=== PATIENT | male | born 1965 | race Caucasian/White ===

== ENCOUNTER 2016-06-01 22:49 | Emergency (ER) | payer OTHER ==
[~2016-06-01 22:49] MED LIST: FLEXERIL10 MG PO; TRAMADOL50 MG PO
[2016-06-01 22:57] VITALS: BP 121/85
[2016-06-01] MEDS ORDERED: OXYCODONE-ACET1 EACH PO (23:23)
[2016-06-01] MEDS ORDERED: MOBIC15 M1 PO (23:24)
--- NOTE | 2016-06-01 23:24 | ED HAND/WRIST INJURY COMPLAINT ---
History of Present Illness General Chief Complaint: General Adult Stated Complaint: PT IS HAVING PAIN IN THE WRIST RG HAND Source: patient Exam Limitations: no limitations Vital Signs & Intake/Output Vital Signs & Intake/Output Vital Signs Date Time Temp Pulse Resp B/P Pulse O2 O2 Flow FiO2 Ox Delivery Rate 06/01 2257 97.0 67 20 121/85 99 Allergies Coded Allergies: NO KNOWN ALLERGIES (03/15/14) Reconcile Medications Meloxicam (Mobic) 15 MG TABLET 1 TAB PO DAILY pain Oxycodone HCl/Acetaminophen (Oxycodone-Acetaminophen 5-325) 5 MG-325 MG TABLET 1 TAB PO BIDP PRN PAIN (Reported) Triage Note: PER PT PAIN TO FINGER AND RT WRIST, UNABLE TO HOLD FORK. HAPPENED A YEAR AGO TOO. Triage Nurses Notes Reviewed? yes Duration: day(s):, constant Timing: recent history Injury Environment: home Severity: moderate, severe Pain/Injury Location: Right: Hand. Method of Injury: unknown No Modifying Factors: none HPI: 50-year-old male comes into the emergency room with complaints of severe pain to his right finger that shoots up his hand. Pain is worse with any type of range of motion. Denies any trauma that he is aware of. Pain has been keeping him up at night. Denies any chest pain shortness of breath shoulder pain. Pain is all localized to the right hand. Patient requesting something for pain. As stated before patient denies any trauma at all to the hand. Denies any other associated symptoms. (MAIKEL ODONNELL) Past History Travel History Traveled to [place] past 21 day No Medical History Any Pertinent Medical History? see below for history Neurological: NONE EENT: NONE Cardiovascular: NONE Respiratory: NONE Gastrointestinal: NONE Hepatic: NONE Renal: NONE Musculoskeletal: NONE Psychiatric: NONE Endocrine: NONE Surgical History Surgical History: non-contributory Psychosocial History What is your primary language Kinyarwanda Tobacco Use: Never used Family History Hx Contributory? No (MAIKEL ODONNELL) Review of Systems Review of Systems Constitutional: Reports: no symptoms. EENTM: Reports: no symptoms. Respiratory: Reports: no symptoms. Cardiovascular: Reports: no symptoms. GI: Reports: no symptoms. Genitourinary: Reports: no symptoms. Musculoskeletal: Reports: see HPI. Skin: Reports: no symptoms. Neurological/Psychological: Reports: no symptoms. Hematologic/Endocrine: Reports: no symptoms. Immunologic/Allergic: Reports: no symptoms. All Other Systems: Reviewed and Negative (MAIKEL ODONNELL) Physical Exam Physical Exam General Appearance: well developed/nourished, mild distress Head: atraumatic Eyes: Bilateral: normal appearance. Ears, Nose, Throat: normal ENT inspection, hearing grossly normal Neck: normal inspection Cardiovascular/Respiratory: no respiratory distress Back: normal inspection Hand Left: normal inspection Hand Right: limited range of motion, 2nd finger, PAIN WITH EXTENSION OF FINGER Neurologic/Tendon: normal sensation, normal motor functions, normal tendon functions, responds to pain, no evidence tendon injury, no pulse deficit Skin: intact, normal color, warm/dry Lymphatic: no anterior cervical evelyn (MAIKEL ODONNELL) Progress Differential Diagnosis: abscess, cellulitis, contusion, compartment syndrome, fracture, gout, paronychia, septic arthritis, sprain, tenosynovitis, TENDINITIS Plan of Care: Current Medications Sig/Vivi Start time Last Medication Dose Stop Time Status Admin Oxycodone HCl 10 MG ONCE ONE 06/01 2329 UNVr (Roxicodone) 06/01 2330 Departure Departure Disposition: HOME OR SELF CARE Condition: Stable Clinical Impression Primary Impression: Tendinitis of right hand Referrals: PATIENT HAS NO PRIMARY CARE DR (PCP/Family) CHRIS MCCURDY MD Additional Instructions: Take Mobic as prescribed. Follow-up with orthopedic doctor. Return if any other concerns worsening symptoms. Ice. Rest. Use wrist splint. Please go over all results of today's visit with your primary care doctor. Contact your primary care doctor to let them know you were here in the emergency room. There may be nonspecific findings which may not be related to your visit today here in the emergency room but may require further evaluation and chronic monitoring by your primary care doctor. If you had a laceration today the chance of foreign body always remains. You should follow-up with your primary care doctor for recheck in 3-5 days for a wound check. If you had an x-ray done there is a chance that a fracture could have been missed on initial read and you should follow-up with your primary care doctor for repeat x-rays if symptoms persist. If your blood pressure was elevated here in the emergency room please have rechecked by her primary care doctor within the next 48 hours by your primary care doctor. If you were prescribed a narcotic here in the emergency room or any type of controlled substances you're not allowed to drive while taking this medication or operate any type of heavy machinery. Narcotics can make you feel lightheaded dizziness nausea and can cause constipation. You may need to tile picker a stool softener. Thank you for choosing [facility] emergency room. Please return to the emergency room immediately if you have any other concerns worsening of symptoms. Departure Forms: Customer Survey General Discharge Information Prescriptions: Current Visit Scripts Meloxicam (Mobic) 1 TAB PO DAILY #20 TAB (MAIKEL ODONNELL) PA/RETAIL PROJECT MERCHANDISER Co-Sign Statement Statement: ED Attending supervision documentation- [] I saw and evaluated the patient. I have also reviewed all the pertinent lab results and diagnostic results. I agree with the findings and the plan of care as documented in the PA's/RETAIL PROJECT MERCHANDISER's documentation. [X] I have reviewed the ED Record and agree with the PA's/RETAIL PROJECT MERCHANDISER's documentation. [] Additions or exceptions (if any) to the PAs/RETAIL PROJECT MERCHANDISER's note and plan are summarized below: [] (NICHO PROCTOR,ANABELLE Hathaway) Procedures Splinting Location: RIGHT HAND Manual Alignment Performed: Yes Pre-Made Type: velcro Splint: wrist (/HAND) Splint Applied By: splint applied by me Pre-Proc Neuro Vasc Exam: normal Post-Proc Neuro Vasc Exam: normal (MAIKEL ODONNELL)
[2016-10-30] MEDS ORDERED: ULTRAM50 M1 PO (23:44)
[2016-10-30] MEDS ORDERED: CYCLOBENZAPRINE10 M1 PO (23:44)
[2016-10-30] MEDS ORDERED: NAPROSYN500 M1 PO (23:44)
== END 2016-06-02 00:01 ==
LOC: ERH 22:49
DX: M77.9 Enthesopathy, unspecified (principal)

== ENCOUNTER 2016-09-20 17:42 | Emergency (ER) | payer OTHER ==
[~2016-09-20] VITALS: Ht 172.7 cm; Wt 76.2 kg
[~2016-09-20 17:42] MED LIST changes: +MOBIC15 M1 PO; +OXYCODONE-ACET1 EACH PO
[2016-09-20 17:46] VITALS: BP 127/86
--- NOTE | 2016-09-20 18:02 | ED CARDIAC/CP/PALPITATIONS ---
History of Present Illness General Chief Complaint: Trunk Injury Stated Complaint: R SIDED RIB INJURY X 3 DAYS Source: patient, old records Exam Limitations: no limitations Vital Signs & Intake/Output Vital Signs & Intake/Output Vital Signs Date Time Temp Pulse Resp B/P B/P Pulse O2 O2 Flow FiO2 Mean Ox Delivery Rate 09/20 1746 98.4 104 20 127/86 100 Room Air Allergies Coded Allergies: NO KNOWN ALLERGIES (03/15/14) Reconcile Medications Meloxicam (Mobic) 15 MG TABLET 1 TAB PO DAILY pain Oxycodone HCl/Acetaminophen (Oxycodone-Acetaminophen 5-325) 5 MG-325 MG TABLET 1 TAB PO BIDP PRN PAIN (Reported) Oxycodone HCl/Acetaminophen (Percocet 5-325 MG Tablet) 5 MG-325 MG TABLET 1 TAB PO BID PRN PAIN Triage Note: PT TO ED C/O RIGHT RIB PAIN X 3 DAYS. STATES ON SUNDAY HE WAS MOVING A CAR SEAT, SLIPPED AND STRUCK HIS CHEST ON THE BOTTOM FRAME OF A CAR. HAS NOT TAKEN OTC MEDS. STATES HE DID NOT HAVE PAIN AFTER INJURY. RA SATS 100%. NO RESP DISTRESS NOTED. PAIN WORSE WITH MOVING, COUGHING. DECLINING MEDS IN TRIAGE. Triage Nurses Notes Reviewed? yes Onset: Abrupt Duration: day(s): (3), constant Timing: recent history Quality/Severity: moderate, aching Location: RSIDED Radiation: no radiation Activities at Onset: SLIPPED AND STRUCK SIDE Prior Chest Pain/Card Workup: no prior chest pain Associated Symptoms: DENIES HPI: 51-year-old male with no medical history presents complaining of right-sided rib pain for the past 3 days. He states that he slipped while putting a car seat into a vehicle and struck the right side of his chest against the bottom part of the car door. He states the pain has been constant aching nonradiating worse with palpation, change in position coughing and laughing. He is not taken anything for his symptoms. No cough no hemoptysis. No abdominal pain nausea vomiting or diarrhea there is no other injury no back or arm or leg pain. (HARINDER JAMES,LAURIE) Past History Travel History Traveled to [place] past 21 day No Medical History Any Pertinent Medical History? none Neurological: NONE EENT: NONE Cardiovascular: NONE Respiratory: NONE Gastrointestinal: NONE Hepatic: NONE Renal: NONE Musculoskeletal: NONE Psychiatric: NONE Endocrine: NONE Surgical History Surgical History: non-contributory Psychosocial History What is your primary language Kyrgyz Tobacco Use: Current Daily Use Daily Tobacco Use Amount/Type: => 5 Cigarettes daily ETOH Use: denies use Illicit Drug Use: denies illicit drug use Family History Hx Contributory? No (LAURIE NAYLOR) Review of Systems Review of Systems Constitutional: Reports: see HPI. All Other Systems: Reviewed and Negative Comments Review of systems: See HPI, All other systems negative. Constitutional, no chills no fever, no malaise HEENT: No visual changes no sore throat no congestion Cardiovascular: chest pain , no palpitation Skin: no rashes, no change in skin Respiratory: No dyspnea no cough no sputum GI: No nausea no vomiting, no diarrhea : No dysuria Muscle skeletal: No joint pain, no joint swelling, no back pain, no neck pain, Neurologic: no headache Psych: No stress Heme/endocrine: No bruising Immunology: No lymphadenopathy (LAURIE NAYLOR) Physical Exam Physical Exam General Appearance: well developed/nourished, alert, awake Cardiovascular: regular rate/rhythm Comments: Well-developed well-nourished patient in no apparent distress. HEENT: Atraumatic, extraocular motion intact Neck: Supple, FROM Back: FROM nontender Cardiovascular: Regular rate and rhythms no murmurs rubs or gallops, cchymosis no signs of trauma Chest nontender.There were no bony deformities, no asymmetry. No respiratory distress. Patient speaking in full complete sentences. Breath sounds clear to auscultation bilaterally: NO W/R/R Extremities: full range of motion Neuro: awake, alert, and oriented to person, place and time. There were no obvious focal neurologic abnormalities. Skin: Warm & dry;No appreciable rash on exposed skin Psych: Mood affect normal, normal memory normal judgment. Core Measures ACS in differential dx? No Severe Sepsis Present: No Septic Shock Present: No (LAURIE NAYLOR) Progress Differential Diagnosis: musculoskeletal pain, pneumothorax, rib fracture Plan of Care: Orders Procedure Date/time Status XRY-RIBS UNILATERAL-RIGHT 09/20 175 Active Patient is declining anything for pain when offered I discussed with the patient at length all of their results. I had an extensive conversation regarding need for close follow up with their primary care physician this week as well as return precautions. I answered all of their questions, they feel comfortable with the plan and follow-up care. I discussed the medications that they will receive with the patient. I gave them signs and symptoms that could indicate an adverse reaction. I have advised them to limit their activities until they can see how they respond to the medication. (LAURIE NAYLOR) Diagnostic Imaging: Viewed by Me: Radiology Read. Discussed w/RAD: Radiology Read. Radiology Impression: PATIENT: ARIN RESENDIZ PRESENT AGE: 51 PATIENT ACCOUNT NO: [id number] : 67 LOCATION: [facility] ORDERING PHYSICIAN: DULCE MARIA MONTENEGRO MD SERVICE DATE: 09/20/16 EXAM TYPE: RAD - XRY -RIBS UNILATERAL-RIGHT EXAMINATION: XR RIBS, RIGHT CLINICAL INFORMATION: Right- sided rib pain following fall. COMPARISON: None. TECHNIQUE: Single PA view of the chest as well as 5 additional views of the right-sided ribs. FINDINGS: The lungs are well-expanded and clear without focal airspace consolidation. No pleural effusions or pneumothoraces are identified. Cardiomediastinal contours are within normal limits. Soft tissues are unremarkable. No acute osseous abnormality is identified. No acute displaced right-sided rib fractures are identified. IMPRESSION: No acute displaced right-sided rib fractures. No acute pulmonary process. DICTATED BY: LIDIA LOVE MD DATE/TIME DICTATED:09/20/161832 POLYMERIZATION KETTLE OPERATOR:PRATIBHA DATE/TIME TRANSCRIBED:09/20/161832 CONFIDENTIAL, DO NOT COPY WITHOUT APPROPRIATE AUTHORIZATION. <Electronically signed in Other Vendor System> Initial ED EKG: none (LAURIE NAYLOR) Departure Departure Time of Disposition: 1823 Disposition: HOME OR SELF CARE Condition: Stable Clinical Impression Primary Impression: Contusion of rib on right side Referrals: PATIENT HAS NO PRIMARY CARE DR (PCP/Family) Additional Instructions: REST, ICE, TYLENOL OR MOTRIN IF NEEDED EVERY 4-6 HOURS FOR PAIN. PERCOCET FOR BREAKTHROUGH PAIN. USE CAUTION THIS IS A NARCOTIC AND HIGHLY ADDICTIVE. NO DRIVING OR DRINKING ALCOHOL WHILE TAKING. FOLLOW UP WITH YOUR PMD, RETURN TO THE ER WITH ANY CONCERNS. [facility] SENT TO [facility] Departure Forms: Customer Survey General Discharge Information Prescriptions: Current Visit Scripts Oxycodone HCl/Acetaminophen (Percocet 5-325 MG Tablet) 1 TAB PO BID PRN PAIN #10 TAB (LAURIE NAYLOR) PA/SERVICE DELIVERY MANAGEMENT CONSULTANT Co-Sign Statement Statement: ED Attending supervision documentation- [] I saw and evaluated the patient. I have also reviewed all the pertinent lab results and diagnostic results. I agree with the findings and the plan of care as documented in the PA's/SERVICE DELIVERY MANAGEMENT CONSULTANT's documentation. [X] I have reviewed the ED Record and agree with the PA's/SERVICE DELIVERY MANAGEMENT CONSULTANT's documentation. [] Additions or exceptions (if any) to the PAs/SERVICE DELIVERY MANAGEMENT CONSULTANT's note and plan are summarized below: [] (LAN PROCTOR,DULCE MARIA) Critical Care Note Critical Care Note Critical Care Time: non-applicable (LAURIE NAYLOR)
[2016-09-20] MEDS ORDERED: PERCOCET 5-3251 EACH PO (18:25)
--- NOTE | 2016-09-20 18:48 | RADIOLOGY REPORT ---
EXAMINATION: XR RIBS, RIGHT CLINICAL INFORMATION: Right-sided rib pain following fall. COMPARISON: None. TECHNIQUE: Single PA view of the chest as well as 5 additional views of the right-sided ribs. FINDINGS: The lungs are well-expanded and clear without focal airspace consolidation. No pleural effusions or pneumothoraces are identified. Cardiomediastinal contours are within normal limits. Soft tissues are unremarkable. No acute osseous abnormality is identified. No acute displaced right-sided rib fractures are identified. IMPRESSION: No acute displaced right-sided rib fractures. No acute pulmonary process.
== END 2016-09-20 18:43 ==
LOC: ERH 17:42
DX: S20.211A Contusion of right front wall of thorax, initial encounter (principal); W22.8XXA Striking against or struck by other objects, initial encounter; Y92.9 Unspecified place or not applicable; Y93.9 Activity, unspecified
CPT/HCPCS: 71100-RT

== ENCOUNTER 2016-10-05 15:37 | Emergency (ER) | payer OTHER ==
[~2016-10-05] VITALS: Ht 170.2 cm; Wt 73.5 kg
[~2016-10-05 15:37] MED LIST changes: +PERCOCET 5-3251 EACH PO
[2016-10-05 15:44] VITALS: BP 118/73
--- NOTE | 2016-10-05 16:20 | RADIOLOGY REPORT ---
EXAMINATION: XR HAND, RIGHT CLINICAL INFORMATION: Pain across the hand. Status post crushing injury. COMPARISON: None TECHNIQUE: AP, lateral, and oblique views of the right hand. FINDINGS: There is an obliquely oriented fifth metacarpal fracture. There is minimal volar displacement of the distal fragment. There is overlying soft tissue swelling. No definite intra-articular extension. Joint spaces are maintained. IMPRESSION: Minimally displaced obliquely oriented fifth metacarpal shaft fracture.
--- NOTE | 2016-10-05 16:23 | ED UPPER/LOWER EXTREMITY COMPL ---
History of Present Illness General Chief Complaint: Hand or Wrist Injury Stated Complaint: RIGHT HAND INJURY Source: patient Exam Limitations: no limitations Vital Signs & Intake/Output Vital Signs & Intake/Output ED Intake and Output 10/06 0000 10/05 1200 Intake Total Output Total Balance Patient 162 lb Weight Weight Reported by Patient Measurement Method Allergies Coded Allergies: NO KNOWN ALLERGIES (03/15/14) Reconcile Medications Nicotine (Nicotine Patch) 7 MG/24 HOUR PATCH.TD24 1 PAT TD PRN SMOKING CESSATION (Reported) Oxycodone HCl/Acetaminophen (Percocet 5-325 MG Tablet) 5 MG-325 MG TABLET 1 TAB PO BID PRN PAIN Triage Note: 51 Y/O MALE C/O R HAND PAIN AND SWELLING X 5 DAYS S/P HAND BEING CAUGHT BETWEEN 2 PALLETS. SWELLING HAS IMPROVED PER PT BUT PAIN PERSISTS. PT DECLINES OFFER OF MEDS IN TRIAGE. 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 Triage Nurses Notes Reviewed? yes Onset: Abrupt Duration: constant Timing: recent history Severity: mild, severe Severity Numbers: 7 Method of Injury: direct blow HPI: Patient is a 51-year-old male who presents emergency and that on Sunday 4 days ago while at work wooden pallets had fallen on patient's hand crushing his right hand resulting acute onset of pain. Patient presents to emergency room stating that his pain and swelling is no better. Patient has not taken any medications for symptoms. Patient is right-hand dominant. The laceration has occurred. Denies any wrist pain. Past History Travel History Traveled to [place] past 21 day No Medical History Any Pertinent Medical History? none Neurological: NONE EENT: NONE Cardiovascular: NONE Respiratory: NONE Gastrointestinal: NONE Hepatic: NONE Renal: NONE Musculoskeletal: NONE Psychiatric: NONE Endocrine: NONE Surgical History Surgical History: non-contributory Psychosocial History What is your primary language Faroese Tobacco Use: Current Daily Use Daily Tobacco Use Amount/Type: => 5 Cigarettes daily Family History Hx Contributory? No Review of Systems Review of Systems Constitutional: Reports: no symptoms. EENTM: Reports: no symptoms. Respiratory: Reports: no symptoms. Cardiovascular: Reports: no symptoms. Gastrointestinal/Abdominal: Reports: no symptoms. Genitourinary: Reports: no symptoms. Musculoskeletal: Reports: see HPI, joint pain. Skin: Reports: no symptoms. Neurological/Psychological: Reports: no symptoms. Hematologic/Endocrine: Reports: no symptoms. Immunological: Reports: no symptoms. All Other Systems: Reviewed and Negative Physical Exam Physical Exam General Appearance: no apparent distress, alert, comfortable Neurologic/Tendon: normal sensation, normal motor functions, normal tendon functions Comments: Well-developed well-nourished no apparent distress. HEENT: Atraumatic, extraocular motion intact Neck: Supple, no lymphadenopathy Back: Nontender Respiratory: No respiratory distress Extremities: Right elbow normal inspection nontender Right wrist normal inspection nontender Right hand noted swelling and severe point tenderness to the fifth metacarpal Mild decreased active range of motion noted with 3-5 digit flexion Neuro: Alert and oriented x3 Psych: Mood affect normal, normal memory normal judgment. Progress Differential Diagnosis: arterial insufficiency, compartment syndrome, contusion, dislocation, DVT, fracture, gout, septic arthritis, sprain, tendon injury Plan of Care: Current Medications Sig/Vivi Start time Last Medication Dose Stop Time Status Admin Oxycodone/ 1 TAB ONCE ONE 10/05 1644 UNVr Acetaminophen 10/05 1645 (Percocet) Patient has concerns of a right fifth metacarpal fracture and which on the gutter splint was applied by me pre-and post-neurovascular was intact. Patient was strongly advised to follow-up with the orthopedic doctor as discussed in discharge instructions (LAURIE RIVERA) Diagnostic Imaging: Viewed by Me: Radiology Read. Radiology Impression: acute abnormality, fracture Comments: PATIENT: ARIN RESENDIZ PRESENT AGE: 51 PATIENT ACCOUNT NO: [id number] : 67 LOCATION: [facility] ORDERING PHYSICIAN: CUAUHTEMOC LATIF DO (TBS) SERVICE DATE: 10/05/16 EXAM TYPE: RAD - XRY-HAND, RIGHT EXAMINATION: XR HAND, RIGHT CLINICAL INFORMATION: Pain across the hand. Status post crushing injury. COMPARISON: None TECHNIQUE: AP, lateral, and oblique views of the right hand. FINDINGS: There is an obliquely oriented fifth metacarpal fracture. There is minimal volar displacement of the distal fragment. There is overlying soft tissue swelling. No definite intra-articular extension. Joint spaces are maintained. IMPRESSION: Minimally displaced obliquely oriented fifth metacarpal shaft fracture. DICTATED BY: BRENDA PROCTOR,JOHANNA DATE/TIME DICTATED:10/05/161612 STATION ENGINEER:PRATIBHA DATE/TIME TRANSCRIBED:10/05/161612 Departure Departure Disposition: HOME OR SELF CARE Condition: Stable Clinical Impression Primary Impression: Fracture of fifth metacarpal bone of right hand Referrals: NAT PROCTOR,ADITHYA PATIENT HAS NO PRIMARY CARE DR (PCP/Family) Additional Instructions: As discussed the splint that has been applied to you in the emergency room, leave this on at all times until you follow up with the orthopedic doctor. Tomorrow please call orthopedic Adithya Faith MD for further evaluation treatment. Prescription is waiting at [facility]. If symptoms worsen return to emergency room Departure Forms: Customer Survey General Discharge Information Prescriptions: Current Visit Scripts Oxycodone HCl/Acetaminophen (Percocet 5-325 MG Tablet) 1 TAB PO BID PRN PAIN #8 TAB Procedures Splinting Location: right hand Manual Alignment Performed: No Hand-Made Type: orthoglass Splint: ULNAR GUTTER Splint Applied By: splint applied by me Pre-Proc Neuro Vasc Exam: normal Post-Proc Neuro Vasc Exam: normal
[2016-10-05] MEDS ORDERED: NICOTINE PATCH1 EAC1 TD (16:44)
[2016-10-05] MEDS ORDERED: PERCOCET 5-3251 EACH PO (17:26)
[2016-10-30] MEDS ORDERED: ULTRAM50 M1 PO (23:44)
[2016-10-30] MEDS ORDERED: CYCLOBENZAPRINE10 M1 PO (23:44)
[2016-10-30] MEDS ORDERED: NAPROSYN500 M1 PO (23:44)
== END 2016-10-05 17:41 ==
LOC: ERH 15:37
DX: S62.326A Displaced fracture of shaft of fifth metacarpal bone, right hand, initial encounter for closed fracture (principal); W23.0XXA Caught, crushed, jammed, or pinched between moving objects, initial encounter; Y92.9 Unspecified place or not applicable; Y93.9 Activity, unspecified
CPT/HCPCS: 73130-RT